=== PATIENT | male | born 1965 | race Two or more races ===

== ENCOUNTER 2021-08-25 13:21 | Emergency (ER) | payer SELFPAY ==
[~2021-08-25] VITALS: Ht 167.6 cm; Wt 64.7 kg
[2021-08-25] MEDS ORDERED: RABIES IMMUNE GLOBULIN PF 300 UNIT/ML 5ML VIAL VAX IM ONE (14:30)
[2021-08-25] MEDS ORDERED: RABIES VIRUS VACC PF 2.5 UNIT / 1 ML VIAL. VAX IM ONE (14:30)
[2021-08-25] MEDS ORDERED: DIPHTH,PERTUSS(ACELL),TET TOX 0.5 ML DISP.SYRIN. VAX IM ONE (14:30)
--- NOTE | 2021-08-25 14:38 | PHYS DOC ---
Past Medical History Past Surgical History: No Surgical History General Adult EDM: Chief Complaint: ANIMAL BITE HPI: HPI: Patient is a 55-year-old male that presents today with a dog bite to his left leg. Patient is Japanese speaking only and his son is at the bedside interpreting for us. According to the patient he was taking out the trash and a dog that is in the neighborhood bit him on his left leg, they do not know who the dog belongs to and is unknown on his vaccine status. Security here at [facility] is attempting to contact animal control to report this dog bite. Review of Systems: Review of Systems: Constitutional: Denies fever or chills. [] Eyes: Denies change in visual acuity. [] HENT: Denies nasal congestion or sore throat. [] Respiratory: Denies cough or shortness of breath. [] Cardiovascular: Denies chest pain or edema. [] GI: Denies abdominal pain, nausea, vomiting, bloody stools or diarrhea. [] : Denies dysuria. [] Musculoskeletal: Left leg dog bite Integument: Left leg dog bite Neurologic: Denies headache, focal weakness or sensory changes. [] Endocrine: Denies polyuria or polydipsia. [] Lymphatic: Denies swollen glands. [] Psychiatric: Denies depression or anxiety. [] Heart Score: C/O Chest Pain: N/A Risk Factors: Risk Factors: DM, Current or recent (<one month) smoker, HTN, HLP, family history of CAD, obesity. Risk Scores: Score 0 - 3: 2.5% MACE over next 6 weeks - Discharge Home Score 4 - 6: 20.3% MACE over next 6 weeks - Admit for Clinical Observation Score 7 - 10: 72.7% MACE over next 6 weeks - Early Invasive Strategies Current Medications: Current Medications Medications (Trade) Dose Ordered Sig/Juliane Route PRN Reason Start Time Stop Time Status Last Admin Dose Admin Diphtheria/ Tetanus/Acell Pertussis (Boostrix) 0.5 ml ONCE ONCE VAX IM 08/25/21 14:30 08/25/21 14:35 DC 08/25/21 14:58 Rabies Vaccine (Imovax Rabies 2.5 Unit / ml) 1 ml ONCE ONCE VAX IM 08/25/21 14:30 08/25/21 14:35 DC 08/25/21 15:05 Rabies Immune Globulin (HyperRAB 300 UNIT/ML 5ML VIAL) 4.3 ml ONCE ONCE VAX IM 08/25/21 14:30 08/25/21 14:35 DC 08/25/21 15:00 Allergies: Allergies: Allergies Coded Allergies Type Severity Reaction Last Updated Verified No Known Drug Allergies 08/25/21 No Physical Exam: PE: Constitutional: Well developed, well nourished, no acute distress, non-toxic appearance. [] HENT: Normocephalic, atraumatic, bilateral external ears normal, oropharynx moist, no oral exudates, nose normal. [] Eyes: PERRLA, EOMI, conjunctiva normal, no discharge. [] Neck: Normal range of motion, no tenderness, supple, no stridor. [] Cardiovascular:Heart rate regular rhythm, no murmur [] Lungs & Thorax: Bilateral breath sounds clear to auscultation [] Abdomen: Bowel sounds normal, soft, no tenderness, no masses, no pulsatile masses. [] Skin: 1 cm puncture wound noted on the left inner knee area, no active bleeding noted, abrasion noted on the lateral aspect of the left calf area no active bleeding noted Back: No tenderness, no CVA tenderness. [] Extremities: Left leg puncture wound noted near the left knee area on the inner aspect, no active bleeding, approximately 1 cm in length, abrasion noted on the lateral aspect of the calf as well, left knee has good range of motion, cap refill less than 2 seconds distal to the injury, dorsalis pedis pulse 2+, good range of motion of the foot as well. Neurologic: Alert and oriented X 3, normal motor function, normal sensory func tion, no focal deficits noted. [] Psychologic: Affect normal, judgement normal, mood normal. [] Current Patient Data: Vital Signs: Vital Signs Date Time Temp Pulse Resp B/P (MAP) Pulse Ox O2 Delivery O2 Flow Rate FiO2 08/25/21 14:14 98.5 60 20 154/85 (108) 98 Room Air 98.5 EKG: EKG: [] Radiology/Procedures: Radiology/Procedures: [REASON: dog bite-LACERATION MEDIAL PROCEDURE: KNEE LEFT 3V AP, oblique, and lateral views of the left knee were obtained. Indication: Dog bite with laceration Comparison: none. Findings: No fracture, dislocation, significant degenerative changes, or effusion is seen. No retained foreign bodies identified. Impression: 1. Unremarkable examination of the left knee. Electronically signed by: Art Black MD (08/25/2021 3:06 PM) [facility] Course & Med Decision Making: Course & Med Decision Making Pertinent Labs and Imaging studies reviewed. (See chart for details) 1430 call placed to the [facility] poison control, spoke with Lida, recommendations from the poison control is to give rabies immunoglobulin, rabies vaccine on day 0, day 3, day 7, and day 14, and to also update patient's tetanus status, also recommended patient the patient on oral antibiotics on an outpatient basis. 1455 spoke to En to report this patient has a dog bite and a possible exposure to rabies, the recommendation was to also give the immunoglobulin and the vaccine, also to see if animal control can find the animal to keep them quarantine for the next 10 days to see if the patient has rabies. This information was passed along to the patient. 1500 after the wound had been irrigated with copious amounts of normal saline by the nurse, the wound was injected with rabies immunoglobulin around it approximately 2.5 mL was in injected into the site area. The remaining amount was placed into the left deltoid muscle. Prescription information and outpatient orders were sent to outpatient department here at [facility] for patient to have further vaccines per the guidelines and recommendations of the [facility] poison control. 1530 did stress the importance to the patient and the family member that was at the bedside for the need of further injections to complete the rabies vaccine, information was given to the patient regarding the number for outpatient so that they may call for making appointments for further evaluation. Patient was given strict return precautions to return if development of fever, signs and symptoms of infection, or any other concerns he may have. Patient was also given orthopedics number to follow-up with if he has any problems with his knee regarding this incident. Patient and family verbalized understanding of the need for further injections to complete the vaccine series, and understanding of the return precautions. Patient ambulated from our department with a steady gait. Dragon Disclaimer: Dragon Disclaimer: This electronic medical record was generated, in whole or in part, using a voice recognition dictation system. Departure Departure Impression: Primary Impression: Dog bite of left knee Qualified Codes: S81.052A - Open bite, left knee, initial encounter; W54.0XXA - Bitten by dog, initial encounter Additional Impression: Need for post exposure prophylaxis for rabies Disposition: 01 HOME / SELF CARE / HOMELESS Condition: STABLE Referrals: NO PCP (PCP) DANY PRATT II, MD Patient Instructions: Animal Bite, Rabies, Rabies Immune Globulin, human RIG solution for injection Additional Instructions: Keep wound clean and dry, clean the wound twice daily with mild soap and water The outpatient center will call you either later on today or tomorrow to set up follow-up appointments for your rabies vaccine, Augmentin 875 mg take 1 tablet twice daily for 10 full days Return to the emergency department if your wound looks infected which will include redness, warmth, swelling, or drainage, also if you have difficulty walking please return to the emergency department Tylenol and ibuprofen as needed for pain Scripts Amoxicillin/Potassium Clav (AMOX TR-K CLV 875-125 MG TAB) 1 Each Tablet 1 TAB PO BID, #20 TAB Prov: KRISTINA URENA COLORS CUSTODIAN 08/25/21 KRISTINA URENA COLORS CUSTODIAN Aug 25, 2021 14:38
--- NOTE | 2021-08-25 15:09 | RAD ---
AP, oblique, and lateral views of the left knee were obtained. Indication: Dog bite with laceration Comparison: none. Findings: No fracture, dislocation, significant degenerative changes, or effusion is seen. No retained foreign bodies identified. Impression: 1. Unremarkable examination of the left knee. Electronically signed by: Atr Black MD (08/25/2021 3:06 PM) [facility]
[2021-08-25] MEDS ORDERED: AMOX1TAB11 PO (15:32)
[2021-08-25 15:39] VITALS: BP 127/76
== END 2021-08-25 15:41 | disposition home or self-care (01) ==
LOC: ER 13:21
DX: S81.052A Open bite, left knee, initial encounter (principal); W54.0XXA Bitten by dog, initial encounter; Y93.89 Activity, other specified; Y92.89 Other specified places as the place of occurrence of the external cause; Y99.8 Other external cause status
CPT/HCPCS: 73562; 90375; 90471; 90472; 90675; 90715; 96372; 99284-25